=== PATIENT | female | born 1975 ===

== ENCOUNTER 2021-02-23 15:28 | Inpatient (IN) | payer OTHER ==
[~2021-02-23] VITALS: Ht 154.9 cm; Wt 80.3 kg
--- NOTE | 2021-02-23 15:30 | NUR ---
PT BIB CARE FLIGHT FROM [facility] FOR SEPSIS WITH BILATERAL PNEUMONIA WITH R PLEURAL EFFUSION. PT WAS HYPOXIC 85-87% ON RA, PT PLACED ON 2L NC, SPO2 95%. PT HAD COVID 1 MONTH AGO, TESTED NEGATIVE IN [place]. PT HX OF DVT, ON [employer] W[employer] SHE STATES, DENIES ANY OTHER MEDICAL HX. PT RECEIVED 3L NS THIRD COOK, 20G R-AC. PT CHANGED INTO GOWN, ALL MONITORS IN PLACE. BED IN LOWEST POSITION, BED RAILS UP X2, CALL LIGHT WITHIN REACH
--- NOTE | 2021-02-23 15:32 | NUR ---
ERP AT BS FOR EVAL
[2021-02-23] MEDS ORDERED: PLEASE ENTER ALLERGIES MC SCH (16:30)
[2021-02-23] MEDS ORDERED: ALBUMIN HUMAN 25% 100 ML IV ONE ×2 (16:30→17:30)
--- NOTE | 2021-02-23 17:06 | NUR ---
Pt to be admitted to [facility], room 407. Report called to [facility].
[2021-02-23] MEDS ORDERED: POLYETHYLENE GLYCOL 17 GM PACKET PO PRN (18:00)
[2021-02-23] MEDS ORDERED: ACETAMINOPHEN 325 MG TABLET PO PRN (18:00)
[2021-02-23] MEDS ORDERED: VANCOMYCIN PER PHARMACY MC PRN (18:30)
[2021-02-23] MEDS ORDERED: VANCOMYCIN 1,800 MG in SODIUM CHLORIDE 0.9% 250 ML IV ONE (18:30)
[2021-02-23] MEDS ORDERED: PHARMACOKINETIC CONSULTATION MC ONE (18:30)
[2021-02-23] MEDS ORDERED: PHARMACOKINETIC MONITORING MC PRN (18:30)
[2021-02-23 18:35] VITALS: BP 108/69
[2021-02-23 19:20] LABS: INTERNATIONAL NORMALIZED RATIO 4.1 (0.93-1.1)
[2021-02-23 20:40] VITALS: BP 108/69
[2021-02-23] MEDS: SODIUM CHLORIDE 0.9% 1,000 ML IV SCH (20:41)
[2021-02-23] MEDS: OXYcodone/APAP 5/325MG TABLET PO PRN (20:42)
[2021-02-23] MEDS: ALPRazolam 1MG TAB PO PRN (20:42)
[2021-02-23] MEDS: GUAIFENESIN/DM 200-20MG, 10ML UDC PO PRN (20:42)
[2021-02-23] MEDS: PIPERACILLIN/TAZO 3.375 GM in DEXTROSE 5% 50 ML IV SCH (21:00)
[2021-02-23] MEDS: SODIUM CHLORIDE FLUSH 10ML SYR IVF SCH (21:00)
[2021-02-23] MEDS: morphine SULFATE 10 MG/ML, 1ML IVPush PRN (23:03)
[2021-02-23 23:53] VITALS: BP 109/71
[2021-02-24] VITALS (15 sets, daily range): BP systolic 89–117; BP diastolic 48–75
[2021-02-24] MEDS: PIPERACILLIN/TAZO 3.375 GM in DEXTROSE 5% 50 ML IV SCH ×4 (02:34→21:57)
[2021-02-24] MEDS: morphine SULFATE 10 MG/ML, 1ML IVPush PRN ×3 (02:49→22:50)
[2021-02-24 06:24] LABS: MEAN CORPUSCULAR HEMOGLOBIN 26.4 pg (27.0-34.8); MEAN CORPUSCULAR HGB CONC 33.3 g/dL (32.4-35.8); MEAN PLATELET VOLUME 7.5 fL (7.4-10.4); RED BLOOD COUNT 2.87 x10^6/uL (3.82-5.3); RED CELL DISTRIBUTION WIDTH 15.9 % (9.6-15.2)
[2021-02-24 06:30] LABS: ALANINE AMINOTRANSFERASE 14 U/L (12-78); ALBUMIN 2.2 g/dL (3.4-5.0); ANION GAP 7 mmol/L (5-15); CALCIUM 8.5 mg/dL (8.5-10.1); CHLORIDE 108 mmol/L (98-107); CREATININE 0.45 mg/dL (0.55-1.02)
[2021-02-24 06:33] LABS: ALKALINE PHOSPHATASE 105 U/L (45-117); BILIRUBIN,TOTAL 0.6 mg/dL (0.2-1.0)
[2021-02-24 06:46] LABS: INTERNATIONAL NORMALIZED RATIO 2.06 (0.93-1.1); PROTHROMBIN TIME 21.3 Seconds (9.6-11.5)
[2021-02-24 07:37] LABS: PLATELET COUNT 1018 x10^3/uL (130-400)
[2021-02-24 07:41] LABS: LYMPH#(MANUAL) 1.14 x10^3/uL (1-3.4); LYMPHS% (MANUAL) 11 % (22-44); MONOS#(MANUAL) 0.83 x10^3/uL (0.3-2.7); MONOS% (MANUAL) 8 % (2-9); SEG#(MANUAL) 8.42 x10^3/uL (1.8-6.8); SEGS% (MANUAL) 81 % (42-75)
[2021-02-24 07:42] LABS: ANISOCYTOSIS 1+; MICROCYTOSIS 1+
[2021-02-24 07:43] LABS: <PLATELET ESTIMATE> INCREASED; <PLT MORPHOLOGY> NORMAL PLT MORPH
[2021-02-24 07:44] LABS: POLYCHROMASIA 1+
[2021-02-24] MEDS ORDERED: SODIUM CHLORIDE 0.9% 250 ML IV ONE ×2 (08:00→08:30)
[2021-02-24] MEDS: SENNA/DOCUSATE TABLET PO SCH (09:00)
[2021-02-24] MEDS: ESCITALOPRAM 10MG TABLET PO SCH (10:10)
[2021-02-24] MEDS: SODIUM CHLORIDE FLUSH 10ML SYR IVF SCH ×2 (10:11→21:13)
[2021-02-24] MEDS: VANCOMYCIN 1,400 MG in SODIUM CHLORIDE 0.9% 250 ML IV SCH (12:24)
[2021-02-24] MEDS ORDERED: MIDAZOLAM 1 MG/ML, 2ML ONE (14:31)
[2021-02-24] MEDS ORDERED: FENTANYL PF 250 MCG/5ML ONE (14:31)
[2021-02-24] MEDS ORDERED: BUPIVACAINE/PF 0.5% ONE (15:06)
[2021-02-24] MEDS ORDERED: EPINEPHRINE 1 MG/ML, 1ML ONE (15:06)
[2021-02-24] MEDS ORDERED: ONDANSETRON 2MG/ML, 2ML ONE ×2 (15:39)
[2021-02-24] MEDS ORDERED: PROPOFOL 10 MG/ML, 20ML ONE (15:39)
[2021-02-24] MEDS ORDERED: SUCCINYLCHOLINE 20 MG/ML, 10ML ONE (15:39)
[2021-02-24] MEDS ORDERED: ROCURONIUM 10 MG/ML,10ML ONE (15:39)
[2021-02-24] MEDS ORDERED: NEOSTIGMINE 1 MG/ML, 10ML ONE (15:39)
[2021-02-24] MEDS ORDERED: GLYCOPYRROLATE 0.2MG/1ML, 5ML ONE (15:39)
[2021-02-24] MEDS ORDERED: LABETALOL 5MG/ML, 20ML IV PRN (16:30)
[2021-02-24] MEDS ORDERED: DIPHENHYDRAMINE 50 MG/ML, 1ML IVPush PRN (16:30)
[2021-02-24] MEDS ORDERED: MEPERIDINE/PF 25MG/0.5ML IVPush PRN (16:30)
[2021-02-24] MEDS ORDERED: HALOPERIDOL 5 MG/ML IV PRN (16:30)
[2021-02-24] MEDS ORDERED: PROMETHAZINE 25 MG/ML, 1ML IVPush PRN (16:30)
[2021-02-24] MEDS ORDERED: OXYcodone 5 MG/5 ML ORAL.SOL UDC PO PRN (16:30)
[2021-02-24] MEDS ORDERED: hydrALAzine 20 MG/ML, 1ML IV PRN (16:30)
[2021-02-24] MEDS: FENTANYL PF 100 MCG/2ML IV PRN ×3 (17:25→17:35)
[2021-02-24] MEDS ORDERED: OXYcodone 5 MG/5 ML ORAL.SOL UDC ONE (17:26)
[2021-02-24] MEDS ORDERED: FENTANYL PF 100 MCG/2ML ONE (17:26)
[2021-02-24] MEDS ORDERED: ACETAMINOPHEN 650 MG/20.3 ML UDC ONE (17:45)
[2021-02-24] MEDS ORDERED: HYDROmorphone 2 MG/ML, 1ML ONE (17:51)
[2021-02-24] MEDS: HYDROmorphone 1 MG/ML, 1ML INJ IVPush PRN ×3 (17:52→18:15)
[2021-02-24] MEDS ORDERED: SODIUM CHLORIDE 0.9%, 500ML IVBOLUS ONE (21:30)
[2021-02-24] MEDS: OXYcodone/APAP 5/325MG TABLET PO PRN (21:57)
[2021-02-25 00:12] VITALS: BP 105/62
[2021-02-25] MEDS: VANCOMYCIN 1,400 MG in SODIUM CHLORIDE 0.9% 250 ML IV SCH ×2 (00:30→13:55)
[2021-02-25] MEDS: OXYcodone/APAP 5/325MG TABLET PO PRN (02:29)
[2021-02-25] MEDS: PIPERACILLIN/TAZO 3.375 GM in DEXTROSE 5% 50 ML IV SCH ×4 (03:20→23:17)
[2021-02-25 03:30] VITALS: BP 103/66
[2021-02-25] MEDS: SODIUM CHLORIDE 0.9% 1,000 ML IV SCH (05:27)
[2021-02-25] MEDS: morphine SULFATE 10 MG/ML, 1ML IVPush PRN (05:28)
[2021-02-25 06:09] LABS: BASOPHILS % (AUTO) 0 % (0-1); EOSINOPHILS % (AUTO) 0 % (1-7); LYMPHOCYTES % (AUTO) 9 % (22-44); MEAN CORPUSCULAR HEMOGLOBIN 27.1 pg (27.0-34.8); MEAN CORPUSCULAR HGB CONC 32.5 g/dL (32.4-35.8); MEAN PLATELET VOLUME 7.4 fL (7.4-10.4); MONOCYTES % (AUTO) 8 % (2-9); NEUTROPHILS % (AUTO) 83 % (42-75); PLATELET COUNT 911 x10^3/uL (130-400); RED BLOOD COUNT 2.93 x10^6/uL (3.82-5.3); RED CELL DISTRIBUTION WIDTH 17.8 % (9.6-15.2)
[2021-02-25 06:20] LABS: ALBUMIN 1.9 g/dL (3.4-5.0); ANION GAP 5 mmol/L (5-15); CALCIUM 7.8 mg/dL (8.5-10.1); CHLORIDE 105 mmol/L (98-107)
[2021-02-25 06:25] LABS: % IRON SATURATION 9 % (20-55); ALANINE AMINOTRANSFERASE 17 U/L (12-78); ALKALINE PHOSPHATASE 91 U/L (45-117); BILIRUBIN,TOTAL 0.5 mg/dL (0.2-1.0); CREATININE 1.51 mg/dL (0.55-1.02); IRON LEVEL 14 mcg/dL (50-170); TOTAL IRON BINDING CAPACITY 159 mcg/dL (250-450); TOTAL PROTEIN 6.6 g/dL (6.4-8.2)
[2021-02-25] MEDS: ESCITALOPRAM 10MG TABLET PO SCH (08:09)
[2021-02-25] MEDS: SENNA/DOCUSATE TABLET PO SCH (08:09)
[2021-02-25] MEDS: FENTANYL PF 100 MCG/2ML IVPush PRN ×3 (08:10→17:37)
[2021-02-25] MEDS: SODIUM CHLORIDE FLUSH 10ML SYR IVF SCH ×2 (08:53→22:07)
[2021-02-25] MEDS: HYDROcodone/APAP 5/325 TABLET PO PRN ×3 (11:01→22:07)
[2021-02-25] MEDS: HEPARIN 25,000 UNITS/250ML PMX 250 ML IV PRN (13:58)
[2021-02-25 14:13] VITALS: BP 92/59
[2021-02-25 14:18] VITALS: BP 86/58
[2021-02-25] MEDS ORDERED: SODIUM CHLORIDE 0.9% 1,000 ML IV SCH (15:30)
[2021-02-25] MEDS ORDERED: WARFARIN 5 MG TABLET PO-COUM ONE (18:00)
[2021-02-25 19:18] VITALS: BP 95/61
[2021-02-25] MEDS: HEPARIN 5,000 UNITS/ML, 1ML IV PRN (22:08)
[2021-02-26 01:41] VITALS: BP 98/64
[2021-02-26] MEDS: HYDROcodone/APAP 5/325 TABLET PO PRN ×4 (03:39→20:42)
[2021-02-26 04:49] LABS: BASOPHILS % (AUTO) 2 % (0-1); EOSINOPHILS % (AUTO) 0 % (1-7); LYMPHOCYTES % (AUTO) 18 % (22-44); MEAN CORPUSCULAR HEMOGLOBIN 26.9 pg (27.0-34.8); MEAN CORPUSCULAR HGB CONC 32.3 g/dL (32.4-35.8); MEAN PLATELET VOLUME 7.3 fL (7.4-10.4); MONOCYTES % (AUTO) 10 % (2-9); NEUTROPHILS % (AUTO) 70 % (42-75); RED BLOOD COUNT 3.14 x10^6/uL (3.82-5.3); RED CELL DISTRIBUTION WIDTH 17.5 % (9.6-15.2)
[2021-02-26 04:53] LABS: PROTHROMBIN TIME 24.6 Seconds (9.6-11.5)
[2021-02-26 04:54] LABS: PLATELET COUNT 1036 x10^3/uL (130-400)
[2021-02-26 04:55] LABS: ANION GAP 6 mmol/L (5-15); CALCIUM 7.6 mg/dL (8.5-10.1); CHLORIDE 105 mmol/L (98-107); CREATININE 2.93 mg/dL (0.55-1.02)
[2021-02-26 05:15] LABS: VANCOMYCIN,RANDOM 64.4 mcg/mL
[2021-02-26] MEDS: PIPERACILLIN/TAZO 3.375 GM in DEXTROSE 5% 50 ML IV SCH (05:50)
[2021-02-26] MEDS: HEPARIN 5,000 UNITS/ML, 1ML IV PRN ×3 (06:26→20:44)
[2021-02-26 07:51] VITALS: BP 95/63
[2021-02-26] MEDS ORDERED: PHARMACY MAY ADJ FOR RENAL FX MC PRN (08:30)
[2021-02-26] MEDS ORDERED: SODIUM CHLORIDE 0.9% 1,000ML IVBOLUS ONE (08:30)
[2021-02-26 08:32] LABS: D-DIMER 2.39 ug/mlFEU (0.00-0.52)
[2021-02-26] MEDS: morphine SULFATE 10 MG/ML, 1ML IVPush PRN ×2 (09:10→17:22)
[2021-02-26] MEDS: SENNA/DOCUSATE TABLET PO SCH (09:15)
[2021-02-26] MEDS: ESCITALOPRAM 10MG TABLET PO SCH (09:15)
[2021-02-26] MEDS: SODIUM CHLORIDE FLUSH 10ML SYR IVF SCH ×2 (09:22→20:47)
[2021-02-26 11:24] LABS: MICROSCOPIC INDICATED
[2021-02-26] MEDS ORDERED: COVID-19 VACC,MRNA(MODERNA)/PF 100 MCG/0.5ML IM-VACC ONE (11:30)
[2021-02-26] MEDS: MEROPENEM 500 MG in SODIUM CHLORIDE 0.9% 100 ML IV SCH ×2 (13:40→23:44)
[2021-02-26] MEDS: SODIUM CHLORIDE 0.9% 1,000 ML IV SCH ×2 (13:40→20:41)
[2021-02-26 14:28] VITALS: BP 101/65
[2021-02-26] MEDS: HEPARIN 25,000 UNITS/250ML PMX 250 ML IV PRN (17:51)
[2021-02-26] MEDS ORDERED: WARFARIN 1 MG TABLET PO-COUM ONE (18:00)
[2021-02-26 20:30] VITALS: BP 100/61
[2021-02-27 00:20] VITALS: BP 104/70
[2021-02-27] MEDS: morphine SULFATE 10 MG/ML, 1ML IVPush PRN ×3 (01:34→22:51)
[2021-02-27] MEDS: SODIUM CHLORIDE 0.9% 1,000 ML IV SCH ×4 (02:56→22:51)
[2021-02-27] MEDS: HYDROcodone/APAP 5/325 TABLET PO PRN ×3 (02:59→18:48)
[2021-02-27 04:02] LABS: CHLORIDE 109 mmol/L (98-107); INTERNATIONAL NORMALIZED RATIO 3.62 (0.93-1.1); PROTHROMBIN TIME 36.4 Seconds (9.6-11.5)
[2021-02-27 04:04] LABS: BASOPHILS % (AUTO) 1 % (0-1); EOSINOPHILS % (AUTO) 3 % (1-7); LYMPHOCYTES % (AUTO) 20 % (22-44); MEAN CORPUSCULAR HEMOGLOBIN 27.9 pg (27.0-34.8); MEAN CORPUSCULAR HGB CONC 33.3 g/dL (32.4-35.8); MEAN PLATELET VOLUME 7.5 fL (7.4-10.4); MONOCYTES % (AUTO) 12 % (2-9); NEUTROPHILS % (AUTO) 64 % (42-75); PLATELET COUNT 877 x10^3/uL (130-400); RED BLOOD COUNT 3.15 x10^6/uL (3.82-5.3); RED CELL DISTRIBUTION WIDTH 17.7 % (9.6-15.2)
[2021-02-27 04:13] LABS: ANION GAP 8 mmol/L (5-15); CALCIUM 7.4 mg/dL (8.5-10.1); CREATINE KINASE, TOTAL 34 U/L (26-192); CREATININE 3.96 mg/dL (0.55-1.02)
[2021-02-27] MEDS: HEPARIN 5,000 UNITS/ML, 1ML IV PRN ×3 (04:31→19:24)
[2021-02-27] MEDS ORDERED: FERROUS SULFATE 325 MG TABLET PO SCH (08:00)
[2021-02-27] MEDS: ESCITALOPRAM 10MG TABLET PO SCH (08:51)
[2021-02-27] MEDS: SENNA/DOCUSATE TABLET PO SCH (08:52)
[2021-02-27] MEDS: SODIUM CHLORIDE FLUSH 10ML SYR IVF SCH ×2 (08:57→20:09)
[2021-02-27 09:10] VITALS: BP 110/70
[2021-02-27 09:38] LABS: CHLORIDE,URINE RANDOM 28 mmol/L; POTASSIUM,URINE RANDOM 3 mmol/L; SODIUM,URINE RANDOM 35 mmol/L
[2021-02-27] MEDS: CEFTRIAXONE 2 GM in DEXTROSE 5% 50 ML IVPB SCH (10:27)
[2021-02-27] MEDS: metroNIDAZOLE 500 MG TABLET PO SCH ×2 (10:30→17:30)
[2021-02-27 14:22] VITALS: BP 108/70
[2021-02-27] MEDS: IRON SUCROSE COMPLEX 100MG/5ML IV SCH (14:24)
[2021-02-27] MEDS: HEPARIN 25,000 UNITS/250ML PMX 250 ML IV PRN (16:09)
[2021-02-27 20:01] LABS: CHLORIDE,URINE RANDOM 41 mmol/L; POTASSIUM,URINE RANDOM 3 mmol/L; SODIUM,URINE RANDOM 45 mmol/L
[2021-02-27 20:17] VITALS: BP 114/71
[2021-02-27 20:32] LABS: MICROSCOPIC INDICATED
[2021-02-28] MEDS: metroNIDAZOLE 500 MG TABLET PO SCH ×2 (00:39→08:48)
[2021-02-28 00:42] VITALS: BP 107/70
[2021-02-28] MEDS: SODIUM CHLORIDE 0.9% 1,000 ML IV SCH ×2 (05:20→11:45)
[2021-02-28 05:34] LABS: ABSOLUTE RETICS # 0.072 x10^6/uL (0.5-2.5); MEAN CORPUSCULAR HEMOGLOBIN 27.1 pg (27.0-34.8); MEAN CORPUSCULAR HGB CONC 32.3 g/dL (32.4-35.8); MEAN PLATELET VOLUME 7.3 fL (7.4-10.4); PLATELET COUNT 975 x10^3/uL (130-400); RED BLOOD COUNT 3.55 x10^6/uL (3.82-5.3); RED CELL DISTRIBUTION WIDTH 18.1 % (9.6-15.2); RETICULOCYTE COUNT % 2.01 % (0.5-1.5)
[2021-02-28 05:43] LABS: INTERNATIONAL NORMALIZED RATIO 4.3 (0.93-1.1); PROTHROMBIN TIME 42.9 Seconds (9.6-11.5)
[2021-02-28 05:45] LABS: ANION GAP 12 mmol/L (5-15); CALCIUM 7.9 mg/dL (8.5-10.1); CHLORIDE 112 mmol/L (98-107)
[2021-02-28 05:50] LABS: ALANINE AMINOTRANSFERASE 15 U/L (12-78); ALBUMIN 1.4 g/dL (3.4-5.0); ALKALINE PHOSPHATASE 162 U/L (45-117); BILIRUBIN,TOTAL 0.2 mg/dL (0.2-1.0); CREATININE 4.54 mg/dL (0.55-1.02); TOTAL PROTEIN 6.2 g/dL (6.4-8.2)
[2021-02-28] MEDS: HYDROcodone/APAP 5/325 TABLET PO PRN ×3 (06:25→19:21)
[2021-02-28 07:42] LABS: BAND#(MANUAL) 0.26 x10^3/uL; BANDS%(MANUAL) 2 % (0-7); BASOS#(MANUAL) 0.13 x10^3/uL (0-0.1); BASOS% (MANUAL) 1 % (0-1); EOS#(MANUAL) 0.13 x10^3/uL (0.0-0.4); EOS% (MANUAL) 1 % (1-7); LYMPH#(MANUAL) 0.52 x10^3/uL (1-3.4); LYMPHS% (MANUAL) 4 % (22-44); METAMYELOCYTES# (MANUAL) 0.39 x10^3/uL (0-0); METAMYELOCYTES% (MANUAL) 3 % (0-1); MONOS#(MANUAL) 0.92 x10^3/uL (0.3-2.7); MONOS% (MANUAL) 7 % (2-9); MYELOCYTES# (MANUAL) 0.13 x10^3/uL (0-0); MYELOCYTES% (MANUAL) 1 % (0-0); SEG#(MANUAL) 10.61 x10^3/uL (1.8-6.8); SEGS% (MANUAL) 81 % (42-75)
[2021-02-28 07:44] LABS: <PLATELET ESTIMATE> INCREASED; <PLT MORPHOLOGY> NORMAL PLT MORPH; ANISOCYTOSIS 1+; HYPOCHROMIA 1+; MICROCYTOSIS 1+
[2021-02-28 08:20] VITALS: BP 119/76
[2021-02-28] MEDS: SODIUM CHLORIDE FLUSH 10ML SYR IVF SCH ×2 (08:48→22:19)
[2021-02-28] MEDS: SENNA/DOCUSATE TABLET PO SCH (08:49)
[2021-02-28] MEDS: CEFTRIAXONE 2 GM in DEXTROSE 5% 50 ML IVPB SCH (10:14)
[2021-02-28] MEDS: HEPARIN 5,000 UNITS/ML, 1ML IV PRN (10:15)
[2021-02-28] MEDS: HEPARIN 25,000 UNITS/250ML PMX 250 ML IV PRN (10:18)
[2021-02-28] MEDS: IRON SUCROSE COMPLEX 100MG/5ML IV SCH (11:45)
[2021-02-28 12:47] VITALS: BP 126/76
[2021-02-28] MEDS: ERGOCALCIFEROL 50,000 UNIT CAPSULE PO SCH (13:06)
[2021-02-28] MEDS ORDERED: PIPERACILLIN/TAZO 2.25 GM in SODIUM CHLORIDE 0.9% 50 ML IV SCH ×2 (15:00→21:30)
[2021-02-28 20:21] VITALS: BP 120/63
[2021-02-28] MEDS: ESCITALOPRAM 10MG TABLET PO SCH (22:19)
[2021-02-28] MEDS: PIPERACILLIN/TAZO 2.25 GM in SODIUM CHLORIDE 0.9% 50 ML IV SCH (22:57)
[2021-03-01 00:34] VITALS: BP 116/74
[2021-03-01] MEDS: ONDANSETRON 2MG/ML, 2ML IVPush PRN ×2 (02:38→13:21)
[2021-03-01] MEDS: GUAIFENESIN/DM 200-20MG, 10ML UDC PO PRN ×4 (02:38→23:13)
[2021-03-01] MEDS: HEPARIN 25,000 UNITS/250ML PMX 250 ML IV PRN (03:01)
[2021-03-01] MEDS: ALPRazolam 1MG TAB PO PRN ×2 (03:08→23:13)
[2021-03-01 04:15] VITALS: BP 102/66
[2021-03-01 06:15] LABS: CHLORIDE 114 mmol/L (98-107)
[2021-03-01 06:29] LABS: INTERNATIONAL NORMALIZED RATIO 5.58 (0.93-1.1)
[2021-03-01 06:32] LABS: ALANINE AMINOTRANSFERASE 14 U/L (12-78); ALBUMIN 1.4 g/dL (3.4-5.0); ALKALINE PHOSPHATASE 146 U/L (45-117); ANION GAP 11 mmol/L (5-15); BASOPHILS % (AUTO) 1 % (0-1); BILIRUBIN,TOTAL 0.3 mg/dL (0.2-1.0); CALCIUM 7.8 mg/dL (8.5-10.1); CREATININE 4.73 mg/dL (0.55-1.02); EOSINOPHILS % (AUTO) 3 % (1-7); LYMPHOCYTES % (AUTO) 12 % (22-44); MEAN CORPUSCULAR HEMOGLOBIN 27.6 pg (27.0-34.8); MEAN CORPUSCULAR HGB CONC 33.1 g/dL (32.4-35.8); MEAN PLATELET VOLUME 7.4 fL (7.4-10.4); MONOCYTES % (AUTO) 7 % (2-9); NEUTROPHILS % (AUTO) 77 % (42-75); PLATELET COUNT 810 x10^3/uL (130-400); RED BLOOD COUNT 3.12 x10^6/uL (3.82-5.3); RED CELL DISTRIBUTION WIDTH 18.9 % (9.6-15.2); TOTAL PROTEIN 5.9 g/dL (6.4-8.2)
[2021-03-01] MEDS: PIPERACILLIN/TAZO 2.25 GM in SODIUM CHLORIDE 0.9% 50 ML IV SCH (07:49)
[2021-03-01 07:50] VITALS: BP 129/72
[2021-03-01] MEDS ORDERED: POTASSIUM ACETATE IV SCH (08:30)
[2021-03-01] MEDS ORDERED: [UNRECOGNIZED DRUG - OTHER] IV SCH (08:30)
[2021-03-01] MEDS ORDERED: SODIUM BICARB IV SCH (08:30)
[2021-03-01] MEDS: SODIUM CHLORIDE FLUSH 10ML SYR IVF SCH ×2 (10:17→23:14)
[2021-03-01] MEDS: SENNA/DOCUSATE TABLET PO SCH (10:18)
[2021-03-01] MEDS: IRON SUCROSE COMPLEX 100MG/5ML IV SCH (13:09)
[2021-03-01] MEDS: PIPERACILLIN/TAZO 2.25 GM in DEXTROSE 5% 50 ML IVPB SCH ×2 (15:07→23:13)
[2021-03-01 15:55] VITALS: BP 124/75
[2021-03-01] MEDS: POTASSIUM CHLORIDE 20 MEQ PACKET PO SCH (16:37)
[2021-03-01 19:53] VITALS: BP 126/81
[2021-03-01] MEDS: SODIUM BICARBONATE 650 MG TABLET PO SCH (23:13)
[2021-03-01] MEDS: ESCITALOPRAM 10MG TABLET PO SCH (23:13)
[2021-03-02 01:36] VITALS: BP 104/69
[2021-03-02] MEDS: GUAIFENESIN/DM 200-20MG, 10ML UDC PO PRN ×4 (05:46→23:00)
[2021-03-02 06:12] LABS: BASOPHILS % (AUTO) 1 % (0-1); EOSINOPHILS % (AUTO) 6 % (1-7); LYMPHOCYTES % (AUTO) 14 % (22-44); MEAN CORPUSCULAR HEMOGLOBIN 28.1 pg (27.0-34.8); MEAN CORPUSCULAR HGB CONC 33.9 g/dL (32.4-35.8); MEAN PLATELET VOLUME 7.3 fL (7.4-10.4); MONOCYTES % (AUTO) 11 % (2-9); NEUTROPHILS % (AUTO) 69 % (42-75); PLATELET COUNT 716 x10^3/uL (130-400); RED BLOOD COUNT 3.15 x10^6/uL (3.82-5.3)
[2021-03-02 06:14] LABS: ANION GAP 8 mmol/L (5-15); CALCIUM 7.7 mg/dL (8.5-10.1); CHLORIDE 117 mmol/L (98-107); CREATININE 5.21 mg/dL (0.55-1.02)
[2021-03-02 06:24] LABS: INTERNATIONAL NORMALIZED RATIO 6.04 (0.93-1.1); PROTHROMBIN TIME 59.3 Seconds (9.6-11.5)
[2021-03-02] MEDS: PIPERACILLIN/TAZO 2.25 GM in DEXTROSE 5% 50 ML IVPB SCH ×3 (07:10→23:00)
[2021-03-02 07:54] VITALS: BP 125/79
[2021-03-02] MEDS: SENNA/DOCUSATE TABLET PO SCH (09:12)
[2021-03-02] MEDS: POTASSIUM CHLORIDE 20 MEQ PACKET PO SCH ×3 (10:37→22:07)
[2021-03-02] MEDS: SODIUM BICARBONATE 650 MG TABLET PO SCH ×2 (10:39→22:06)
[2021-03-02] MEDS: SODIUM CHLORIDE FLUSH 10ML SYR IVF SCH ×2 (10:40→22:07)
[2021-03-02] MEDS: IRON SUCROSE COMPLEX 100MG/5ML IV SCH (12:49)
[2021-03-02] MEDS: ONDANSETRON 2MG/ML, 2ML IVPush PRN (12:55)
[2021-03-02 12:58] VITALS: BP 130/79
[2021-03-02] MEDS: ALPRazolam 1MG TAB PO PRN (18:49)
[2021-03-02 19:32] VITALS: BP 119/75
[2021-03-02] MEDS: ESCITALOPRAM 10MG TABLET PO SCH (22:06)
[2021-03-03 02:00] VITALS: BP 127/61
[2021-03-03] MEDS: ALPRazolam 1MG TAB PO PRN ×2 (05:47→13:07)
[2021-03-03] MEDS: GUAIFENESIN/DM 200-20MG, 10ML UDC PO PRN ×3 (05:47→18:58)
[2021-03-03 06:29] LABS: INTERNATIONAL NORMALIZED RATIO 4.87 (0.93-1.1); PROTHROMBIN TIME 48.3 Seconds (9.6-11.5)
[2021-03-03 06:34] LABS: BASOPHILS % (AUTO) 1 % (0-1); EOSINOPHILS % (AUTO) 7 % (1-7); LYMPHOCYTES % (AUTO) 14 % (22-44); MEAN CORPUSCULAR HEMOGLOBIN 27.1 pg (27.0-34.8); MEAN CORPUSCULAR HGB CONC 32.7 g/dL (32.4-35.8); MEAN PLATELET VOLUME 7.4 fL (7.4-10.4); MONOCYTES % (AUTO) 10 % (2-9); NEUTROPHILS % (AUTO) 68 % (42-75); PLATELET COUNT 730 x10^3/uL (130-400); RED BLOOD COUNT 3.55 x10^6/uL (3.82-5.3)
[2021-03-03 06:38] LABS: ALANINE AMINOTRANSFERASE 10 U/L (12-78); ALBUMIN 1.4 g/dL (3.4-5.0); ANION GAP 9 mmol/L (5-15); CALCIUM 7.7 mg/dL (8.5-10.1); CHLORIDE 115 mmol/L (98-107); CREATININE 5.39 mg/dL (0.55-1.02)
[2021-03-03 06:47] LABS: ALKALINE PHOSPHATASE 147 U/L (45-117); BILIRUBIN,TOTAL 0.3 mg/dL (0.2-1.0); TOTAL PROTEIN 6.4 g/dL (6.4-8.2)
[2021-03-03] MEDS: PIPERACILLIN/TAZO 2.25 GM in DEXTROSE 5% 50 ML IVPB SCH (07:43)
[2021-03-03 07:44] VITALS: BP 114/76
[2021-03-03 08:45] LABS: HCT (SEDRATE) 29.4 % (34.6-47.8)
[2021-03-03] MEDS: SENNA/DOCUSATE TABLET PO SCH (09:07)
[2021-03-03] MEDS: POTASSIUM CHLORIDE 20 MEQ PACKET PO SCH ×3 (09:13→20:23)
[2021-03-03] MEDS: SODIUM CHLORIDE FLUSH 10ML SYR IVF SCH ×2 (09:14→20:24)
[2021-03-03] MEDS: SODIUM BICARBONATE 650 MG TABLET PO SCH ×2 (09:15→20:24)
[2021-03-03] MEDS: ONDANSETRON 2MG/ML, 2ML IVPush PRN (12:33)
[2021-03-03] MEDS: IRON SUCROSE COMPLEX 100MG/5ML IV SCH (13:07)
[2021-03-03 14:00] VITALS: BP 124/81
[2021-03-03] MEDS ORDERED: ERTAPENEM 1 GM in SODIUM CHLORIDE 0.9% 50 ML IV SCH (16:00)
[2021-03-03 19:12] VITALS: BP 123/67
[2021-03-03] MEDS: ESCITALOPRAM 10MG TABLET PO SCH (20:23)
[2021-03-04] MEDS: GUAIFENESIN/DM 200-20MG, 10ML UDC PO PRN ×4 (01:15→21:01)
[2021-03-04] MEDS: ALPRazolam 1MG TAB PO PRN ×3 (01:15→18:15)
[2021-03-04 02:16] VITALS: BP 115/73
[2021-03-04 05:42] LABS: INTERNATIONAL NORMALIZED RATIO 3.85 (0.93-1.1); PROTHROMBIN TIME 38.6 Seconds (9.6-11.5)
[2021-03-04 07:41] VITALS: BP 113/70
[2021-03-04] MEDS: SODIUM CHLORIDE FLUSH 10ML SYR IVF SCH ×2 (08:34→20:52)
[2021-03-04] MEDS: SENNA/DOCUSATE TABLET PO SCH (08:34)
[2021-03-04] MEDS: SODIUM BICARBONATE 650 MG TABLET PO SCH ×2 (08:34→20:52)
[2021-03-04] MEDS: POTASSIUM CHLORIDE 20 MEQ PACKET PO SCH ×3 (08:34→20:52)
[2021-03-04 09:33] LABS: ANION GAP 9 mmol/L (5-15); CALCIUM 7.7 mg/dL (8.5-10.1); CHLORIDE 117 mmol/L (98-107); CREATININE 5.38 mg/dL (0.55-1.02)
[2021-03-04 13:16] VITALS: BP 118/66
[2021-03-04] MEDS: ERTAPENEM 0.5 GM in SODIUM CHLORIDE 0.9% 50 ML IV SCH (16:55)
[2021-03-04] MEDS: ONDANSETRON 2MG/ML, 2ML IVPush PRN (17:31)
[2021-03-04] MEDS ORDERED: WARFARIN 1 MG TABLET PO-COUM ONE (18:00)
[2021-03-04 18:48] VITALS: BP 108/60
[2021-03-04] MEDS: ESCITALOPRAM 10MG TABLET PO SCH (20:52)
[2021-03-05 02:10] VITALS: BP 125/61
[2021-03-05] MEDS: GUAIFENESIN/DM 200-20MG, 10ML UDC PO PRN ×4 (02:52→23:47)
[2021-03-05] MEDS: ALPRazolam 1MG TAB PO PRN ×3 (02:53→20:51)
[2021-03-05 06:02] LABS: INTERNATIONAL NORMALIZED RATIO 2.61 (0.93-1.1); PROTHROMBIN TIME 26.7 Seconds (9.6-11.5)
[2021-03-05 06:06] LABS: CHLORIDE 114 mmol/L (98-107)
[2021-03-05 06:09] LABS: ALANINE AMINOTRANSFERASE 8 U/L (12-78); ALBUMIN 1.4 g/dL (3.4-5.0); ALKALINE PHOSPHATASE 131 U/L (45-117); ANION GAP 9 mmol/L (5-15); BILIRUBIN,TOTAL 0.4 mg/dL (0.2-1.0); CALCIUM 7.8 mg/dL (8.5-10.1); CREATININE 5.18 mg/dL (0.55-1.02); TOTAL PROTEIN 5.9 g/dL (6.4-8.2)
[2021-03-05 06:18] LABS: BASOPHILS % (AUTO) 1 % (0-1); EOSINOPHILS % (AUTO) 8 % (1-7); LYMPHOCYTES % (AUTO) 13 % (22-44); MEAN CORPUSCULAR HEMOGLOBIN 27.8 pg (27.0-34.8); MEAN PLATELET VOLUME 7.6 fL (7.4-10.4); MONOCYTES % (AUTO) 11 % (2-9); NEUTROPHILS % (AUTO) 68 % (42-75); PLATELET COUNT 422 x10^3/uL (130-400); RED BLOOD COUNT 3.05 x10^6/uL (3.82-5.3); RED CELL DISTRIBUTION WIDTH 21.2 % (9.6-15.2)
[2021-03-05] MEDS: ONDANSETRON 2MG/ML, 2ML IVPush PRN (06:37)
[2021-03-05] MEDS: HYDROcodone/APAP 5/325 TABLET PO PRN ×3 (07:43→23:47)
[2021-03-05] MEDS: POTASSIUM CHLORIDE 20 MEQ PACKET PO SCH ×3 (07:45→20:52)
[2021-03-05] MEDS: SODIUM BICARBONATE 650 MG TABLET PO SCH ×2 (07:45→20:53)
[2021-03-05] MEDS: SENNA/DOCUSATE TABLET PO SCH (07:46)
[2021-03-05] MEDS: SODIUM CHLORIDE FLUSH 10ML SYR IVF SCH ×2 (07:46→20:59)
[2021-03-05 07:51] VITALS: BP 95/67
[2021-03-05 14:16] VITALS: BP 109/70
[2021-03-05] MEDS: ERTAPENEM 0.5 GM in SODIUM CHLORIDE 0.9% 50 ML IV SCH (17:26)
[2021-03-05] MEDS ORDERED: WARFARIN 7.5 MG TABLET PO-COUM ONE (18:00)
[2021-03-05] MEDS ORDERED: ESCI20TA10 PO (18:11)
[2021-03-05] MEDS ORDERED: WARF-36 PO (18:11)
[2021-03-05] MEDS ORDERED: WARF7.5T46 PO (18:11)
[2021-03-05] MEDS ORDERED: ALPR1TAB2 PO (18:11)
[2021-03-05 20:05] VITALS: BP 123/79
[2021-03-05] MEDS: ESCITALOPRAM 10MG TABLET PO SCH (20:52)
[2021-03-06 02:03] VITALS: BP 122/94
[2021-03-06 05:16] LABS: BASOPHILS % (AUTO) 0 % (0-1); EOSINOPHILS % (AUTO) 8 % (1-7); LYMPHOCYTES % (AUTO) 15 % (22-44); MEAN PLATELET VOLUME 7.5 fL (7.4-10.4); MONOCYTES % (AUTO) 11 % (2-9); NEUTROPHILS % (AUTO) 66 % (42-75); PLATELET COUNT 378 x10^3/uL (130-400); RED BLOOD COUNT 2.98 x10^6/uL (3.82-5.3)
[2021-03-06 05:27] LABS: INTERNATIONAL NORMALIZED RATIO 2.67 (0.93-1.1); PROTHROMBIN TIME 27.3 Seconds (9.6-11.5)
[2021-03-06 05:29] LABS: ANION GAP 8 mmol/L (5-15); CALCIUM 7.5 mg/dL (8.5-10.1); CHLORIDE 114 mmol/L (98-107); CREATININE 4.96 mg/dL (0.55-1.02)
[2021-03-06] MEDS: GUAIFENESIN/DM 200-20MG, 10ML UDC PO PRN ×3 (05:53→21:52)
[2021-03-06] MEDS: HYDROcodone/APAP 5/325 TABLET PO PRN ×3 (05:55→21:52)
[2021-03-06] MEDS: SENNA/DOCUSATE TABLET PO SCH (08:13)
[2021-03-06] MEDS: POTASSIUM CHLORIDE 20 MEQ PACKET PO SCH (08:53)
[2021-03-06] MEDS: SODIUM CHLORIDE FLUSH 10ML SYR IVF SCH ×2 (08:53→21:54)
[2021-03-06] MEDS: SODIUM BICARBONATE 650 MG TABLET PO SCH ×2 (08:54→21:50)
[2021-03-06] MEDS: ALPRazolam 1MG TAB PO PRN ×2 (08:55→17:08)
[2021-03-06 10:21] VITALS: BP 124/80
[2021-03-06 13:56] VITALS: BP 124/78
[2021-03-06] MEDS: ERTAPENEM 0.5 GM in SODIUM CHLORIDE 0.9% 50 ML IV SCH (17:09)
[2021-03-06] MEDS ORDERED: WARFARIN 2.5 MG TABLET PO-COUM ONE (18:00)
[2021-03-06 20:41] VITALS: BP 117/78
[2021-03-06] MEDS: ESCITALOPRAM 10MG TABLET PO SCH (21:50)
[2021-03-07 00:35] VITALS: BP 108/72
[2021-03-07] MEDS: ALPRazolam 1MG TAB PO PRN ×3 (02:12→18:17)
[2021-03-07] MEDS: GUAIFENESIN/DM 200-20MG, 10ML UDC PO PRN ×3 (04:46→18:17)
[2021-03-07] MEDS: HYDROcodone/APAP 5/325 TABLET PO PRN ×3 (04:47→18:17)
[2021-03-07 05:29] LABS: BASOPHILS % (AUTO) 1 % (0-1); EOSINOPHILS % (AUTO) 8 % (1-7); LYMPHOCYTES % (AUTO) 22 % (22-44); MEAN CORPUSCULAR HEMOGLOBIN 28.1 pg (27.0-34.8); MEAN PLATELET VOLUME 7.8 fL (7.4-10.4); MONOCYTES % (AUTO) 10 % (2-9); NEUTROPHILS % (AUTO) 59 % (42-75); PLATELET COUNT 331 x10^3/uL (130-400); RED BLOOD COUNT 2.86 x10^6/uL (3.82-5.3); RED CELL DISTRIBUTION WIDTH 21.7 % (9.6-15.2)
[2021-03-07 05:36] LABS: ANION GAP 4 mmol/L (5-15); CALCIUM 7.5 mg/dL (8.5-10.1); CHLORIDE 112 mmol/L (98-107)
[2021-03-07 05:37] LABS: CREATININE 4.75 mg/dL (0.55-1.02)
[2021-03-07 05:43] LABS: INTERNATIONAL NORMALIZED RATIO 3.75 (0.93-1.1); PROTHROMBIN TIME 37.7 Seconds (9.6-11.5)
[2021-03-07 07:04] VITALS: BP 147/86
[2021-03-07] MEDS: SENNA/DOCUSATE TABLET PO SCH (09:00)
[2021-03-07] MEDS: SODIUM CHLORIDE FLUSH 10ML SYR IVF SCH ×2 (09:00→21:11)
[2021-03-07] MEDS: SODIUM BICARBONATE 650 MG TABLET PO SCH ×2 (11:42→21:11)
[2021-03-07 12:28] VITALS: BP 138/85
[2021-03-07] MEDS ORDERED: HOLD WARFARIN MC ONE (18:00)
[2021-03-07] MEDS: ERTAPENEM 0.5 GM in SODIUM CHLORIDE 0.9% 50 ML IV SCH (18:17)
[2021-03-07] MEDS: ERGOCALCIFEROL 50,000 UNIT CAPSULE PO SCH (18:17)
[2021-03-07 21:01] VITALS: BP 126/79
[2021-03-07] MEDS: ESCITALOPRAM 10MG TABLET PO SCH (21:11)
[2021-03-08] MEDS: ALPRazolam 1MG TAB PO PRN ×4 (00:21→18:45)
[2021-03-08] MEDS: GUAIFENESIN/DM 200-20MG, 10ML UDC PO PRN ×4 (00:21→21:27)
[2021-03-08] MEDS: HYDROcodone/APAP 5/325 TABLET PO PRN ×4 (00:22→18:45)
[2021-03-08 03:04] VITALS: BP 146/83
[2021-03-08 05:25] LABS: BASOPHILS % (AUTO) 0 % (0-1); EOSINOPHILS % (AUTO) 5 % (1-7); LYMPHOCYTES % (AUTO) 22 % (22-44); MEAN CORPUSCULAR HEMOGLOBIN 27.8 pg (27.0-34.8); MEAN CORPUSCULAR HGB CONC 32.8 g/dL (32.4-35.8); MEAN PLATELET VOLUME 7.8 fL (7.4-10.4); MONOCYTES % (AUTO) 10 % (2-9); NEUTROPHILS % (AUTO) 63 % (42-75); PLATELET COUNT 350 x10^3/uL (130-400); RED CELL DISTRIBUTION WIDTH 21.5 % (9.6-15.2)
[2021-03-08 05:26] LABS: INTERNATIONAL NORMALIZED RATIO 3.88 (0.93-1.1); PROTHROMBIN TIME 38.9 Seconds (9.6-11.5)
[2021-03-08 05:28] LABS: ALANINE AMINOTRANSFERASE 7 U/L (12-78); ALBUMIN 1.5 g/dL (3.4-5.0); ANION GAP 3 mmol/L (5-15); CALCIUM 7.4 mg/dL (8.5-10.1); CHLORIDE 111 mmol/L (98-107); CREATININE 4.24 mg/dL (0.55-1.02)
[2021-03-08 05:31] LABS: ALKALINE PHOSPHATASE 144 U/L (45-117); BILIRUBIN,TOTAL 0.3 mg/dL (0.2-1.0); TOTAL PROTEIN 6.4 g/dL (6.4-8.2)
[2021-03-08 06:22] VITALS: BP 143/78
[2021-03-08 08:37] VITALS: BP 118/75
[2021-03-08] MEDS: SENNA/DOCUSATE TABLET PO SCH (08:43)
[2021-03-08] MEDS: SODIUM CHLORIDE FLUSH 10ML SYR IVF SCH ×2 (08:43→21:12)
[2021-03-08] MEDS: SODIUM BICARBONATE 650 MG TABLET PO SCH (08:43)
[2021-03-08] MEDS ORDERED: HOLD WARFARIN MC ONE (14:30)
[2021-03-08 14:51] VITALS: BP 137/81
[2021-03-08] MEDS: ERTAPENEM 0.5 GM in SODIUM CHLORIDE 0.9% 50 ML IV SCH (16:40)
[2021-03-08] MEDS: ESCITALOPRAM 10MG TABLET PO SCH (21:12)
[2021-03-08 21:34] VITALS: BP 136/68
[2021-03-09] MEDS: ALPRazolam 1MG TAB PO PRN ×4 (01:01→21:38)
[2021-03-09] MEDS: HYDROcodone/APAP 5/325 TABLET PO PRN ×4 (01:02→21:38)
[2021-03-09 01:05] VITALS: BP 140/72
[2021-03-09] MEDS: GUAIFENESIN/DM 200-20MG, 10ML UDC PO PRN (05:35)
[2021-03-09 05:38] LABS: HCT (SEDRATE) 25.3 % (34.6-47.8)
[2021-03-09 06:25] LABS: INTERNATIONAL NORMALIZED RATIO 3.73 (0.93-1.1); PROTHROMBIN TIME 37.5 Seconds (9.6-11.5)
[2021-03-09 08:05] VITALS: BP 137/83
[2021-03-09 08:50] VITALS: BP 111/54
[2021-03-09] MEDS: SENNA/DOCUSATE TABLET PO SCH (09:00)
[2021-03-09] MEDS: SODIUM CHLORIDE FLUSH 10ML SYR IVF SCH ×2 (09:54→21:00)
[2021-03-09] MEDS ORDERED: GUAIFENESIN 100 MG/5 ML, 5ML UDC PO PRN (13:30)
[2021-03-09] MEDS: GUAIFENESIN/DM 100-10MG, 5ML UDC PO PRN ×2 (14:49→21:37)
[2021-03-09 14:53] VITALS: BP 134/78
[2021-03-09] MEDS: ERTAPENEM 0.5 GM in SODIUM CHLORIDE 0.9% 50 ML IV SCH (16:30)
[2021-03-09] MEDS: WARFARIN 1 MG TABLET PO-COUM ONE (18:00)
[2021-03-09 19:37] VITALS: BP 120/75
[2021-03-09] MEDS: ESCITALOPRAM 10MG TABLET PO SCH (21:38)
[2021-03-10 01:42] VITALS: BP 145/85
[2021-03-10 05:13] LABS: BASOPHILS % (AUTO) 0 % (0-1); EOSINOPHILS % (AUTO) 3 % (1-7); LYMPHOCYTES % (AUTO) 24 % (22-44); MEAN CORPUSCULAR HGB CONC 33.2 g/dL (32.4-35.8); MONOCYTES % (AUTO) 8 % (2-9); NEUTROPHILS % (AUTO) 64 % (42-75); PLATELET COUNT 334 x10^3/uL (130-400); RED BLOOD COUNT 3.05 x10^6/uL (3.82-5.3); RED CELL DISTRIBUTION WIDTH 21.2 % (9.6-15.2)
[2021-03-10 05:23] LABS: INTERNATIONAL NORMALIZED RATIO 3.35 (0.93-1.1); PROTHROMBIN TIME 33.8 Seconds (9.6-11.5)
[2021-03-10 05:29] LABS: ALBUMIN 1.6 g/dL (3.4-5.0); ANION GAP 3 mmol/L (5-15); CALCIUM 7.7 mg/dL (8.5-10.1); CHLORIDE 109 mmol/L (98-107); CREATININE 3.28 mg/dL (0.55-1.02)
[2021-03-10 05:31] LABS: ALKALINE PHOSPHATASE 161 U/L (45-117); BILIRUBIN,TOTAL 0.3 mg/dL (0.2-1.0); TOTAL PROTEIN 6.6 g/dL (6.4-8.2)
[2021-03-10] MEDS: ALPRazolam 1MG TAB PO PRN ×3 (05:31→21:05)
[2021-03-10] MEDS: HYDROcodone/APAP 5/325 TABLET PO PRN ×3 (05:31→21:05)
[2021-03-10] MEDS: GUAIFENESIN/DM 100-10MG, 5ML UDC PO PRN ×3 (05:31→21:05)
[2021-03-10 05:36] LABS: ALANINE AMINOTRANSFERASE < 6 U/L (12-78)
[2021-03-10] MEDS: SODIUM CHLORIDE FLUSH 10ML SYR IVF SCH ×2 (08:21→21:06)
[2021-03-10] MEDS: SENNA/DOCUSATE TABLET PO SCH (08:21)
[2021-03-10 08:23] VITALS: BP 139/82
[2021-03-10 13:54] VITALS: BP 121/79
[2021-03-10] MEDS: ERTAPENEM 0.5 GM in SODIUM CHLORIDE 0.9% 50 ML IV SCH (17:11)
[2021-03-10] MEDS ORDERED: WARFARIN 1 MG TABLET PO-COUM ONE (18:00)
[2021-03-10] MEDS: ESCITALOPRAM 10MG TABLET PO SCH (21:06)
[2021-03-10 21:10] VITALS: BP 140/84
[2021-03-11 02:40] VITALS: BP 134/77
[2021-03-11] MEDS: HYDROcodone/APAP 5/325 TABLET PO PRN ×4 (03:38→22:40)
[2021-03-11] MEDS: ALPRazolam 1MG TAB PO PRN ×3 (03:41→16:20)
[2021-03-11 06:48] LABS: ALBUMIN 1.6 g/dL (3.4-5.0); CALCIUM 6.9 mg/dL (8.5-10.1); CHLORIDE 104 mmol/L (98-107)
[2021-03-11 06:51] LABS: ANION GAP 11 mmol/L (5-15); CREATININE 2.67 mg/dL (0.55-1.02)
[2021-03-11 07:08] LABS: INTERNATIONAL NORMALIZED RATIO 2.65 (0.93-1.1); PROTHROMBIN TIME 27.1 Seconds (9.6-11.5)
[2021-03-11 07:54] VITALS: BP 135/80
[2021-03-11] MEDS: SENNA/DOCUSATE TABLET PO SCH (09:00)
[2021-03-11] MEDS: SODIUM CHLORIDE FLUSH 10ML SYR IVF SCH ×2 (09:30→21:26)
[2021-03-11] MEDS: GUAIFENESIN/DM 100-10MG, 5ML UDC PO PRN (10:06)
[2021-03-11] MEDS: AMOXICILLIN/CLAV 875-125MG TABLET PO SCH ×2 (10:07→21:25)
[2021-03-11] MEDS: ONDANSETRON 2MG/ML, 2ML IVPush PRN (11:36)
[2021-03-11 13:19] VITALS: BP 115/75
[2021-03-11] MEDS: ERTAPENEM 0.5 GM in SODIUM CHLORIDE 0.9% 50 ML IV SCH (17:30)
[2021-03-11] MEDS ORDERED: WARFARIN 1 MG TABLET PO-COUM ONE (18:00)
[2021-03-11 19:20] VITALS: BP 103/67
[2021-03-11] MEDS: ESCITALOPRAM 10MG TABLET PO SCH (21:25)
[2021-03-12 02:12] VITALS: BP 108/70
[2021-03-12] MEDS: ALPRazolam 1MG TAB PO PRN ×2 (02:44→11:40)
[2021-03-12] MEDS: HYDROcodone/APAP 5/325 TABLET PO PRN ×2 (05:02→11:40)
[2021-03-12 05:43] LABS: BASOPHILS % (AUTO) 1 % (0-1); EOSINOPHILS % (AUTO) 3 % (1-7); LYMPHOCYTES % (AUTO) 27 % (22-44); MEAN CORPUSCULAR HEMOGLOBIN 27.8 pg (27.0-34.8); MEAN CORPUSCULAR HGB CONC 32.6 g/dL (32.4-35.8); MEAN PLATELET VOLUME 8.3 fL (7.4-10.4); MONOCYTES % (AUTO) 9 % (2-9); NEUTROPHILS % (AUTO) 60 % (42-75); PLATELET COUNT 331 x10^3/uL (130-400); RED BLOOD COUNT 3.17 x10^6/uL (3.82-5.3); RED CELL DISTRIBUTION WIDTH 21.1 % (9.6-15.2)
[2021-03-12 05:51] LABS: INTERNATIONAL NORMALIZED RATIO 2.53 (0.93-1.1); PROTHROMBIN TIME 25.9 Seconds (9.6-11.5)
[2021-03-12 05:53] LABS: ANION GAP 6 mmol/L (5-15); CALCIUM 7.3 mg/dL (8.5-10.1); CHLORIDE 107 mmol/L (98-107); CREATININE 2.21 mg/dL (0.55-1.02)
[2021-03-12 08:42] VITALS: BP 113/74
[2021-03-12] MEDS ORDERED: ERTAPENEM 0.5 GM in SODIUM CHLORIDE 0.9% 50 ML IV SCH (09:00)
[2021-03-12] MEDS: SENNA/DOCUSATE TABLET PO SCH (09:00)
[2021-03-12] MEDS: SODIUM CHLORIDE FLUSH 10ML SYR IVF SCH (09:04)
[2021-03-12] MEDS: AMOXICILLIN/CLAV 875-125MG TABLET PO SCH (10:09)
[2021-03-12 14:32] VITALS: BP 110/74
[2021-03-12] MEDS ORDERED: ERGO500017 PO (14:58)
[2021-03-12] MEDS ORDERED: AMOX1TAB12 PO (14:58)
[2021-03-12] MEDS ORDERED: WARFARIN 1 MG TABLET PO-COUM ONE (18:00)
== END 2021-03-12 16:30 | disposition home or self-care (01) | DRG 853 ==
LOC: EDBD 15:28 → SUATTDRO 16:43 → ED 17:09 → EDIP 17:49 → 4WST 17:57 → 4NE 02-24 19:01
PROVIDERS: ADMIT Internal Medicine; ATTEND Internal Medicine
PROC: 0BNK4ZZ Release Right Lung, Percutaneous Endoscopic Approach (ICD-10-PCS; 2021-02-24)
PROC: 30233K1 Transfusion of Nonautologous Frozen Plasma into Peripheral Vein, Percutaneous Approach (ICD-10-PCS; 2021-02-24)
PROC: 30233N1 Transfusion of Nonautologous Red Blood Cells into Peripheral Vein, Percutaneous Approach (ICD-10-PCS; 2021-02-24)
PROC: 02HV33Z Insertion of Infusion Device into Superior Vena Cava, Percutaneous Approach (ICD-10-PCS; principal; 2021-03-05)
PROC: B5181ZA Fluoroscopy of Superior Vena Cava using Low Osmolar Contrast, Guidance (ICD-10-PCS; 2021-03-05)
PROC: B548ZZA Ultrasonography of Superior Vena Cava, Guidance (ICD-10-PCS; 2021-03-05)
DX: A41.9 Sepsis, unspecified organism (principal); E43 Unspecified severe protein-calorie malnutrition; R65.21 Severe sepsis with septic shock; N17.0 Acute kidney failure with tubular necrosis; J96.01 Acute respiratory failure with hypoxia; J86.9 Pyothorax without fistula; J15.9 Unspecified bacterial pneumonia; D68.59 Other primary thrombophilia; E87.1 Hypo-osmolality and hyponatremia; E87.2 Acidosis; I31.3 Pericardial effusion (noninflammatory); I82.402 Acute embolism and thrombosis of unspecified deep veins of left lower extremity; D50.9 Iron deficiency anemia, unspecified; E66.9 Obesity, unspecified; E83.51 Hypocalcemia; T36.8X5A Adverse effect of other systemic antibiotics, initial encounter; N14.1 Nephropathy induced by other drugs, medicaments and biological substances; F32.9 Major depressive disorder, single episode, unspecified; F41.1 Generalized anxiety disorder; I11.9 Hypertensive heart disease without heart failure; Z98.51 Tubal ligation status; Z86.718 Personal history of other venous thrombosis and embolism; Z79.01 Long term (current) use of anticoagulants; Z68.33 Body mass index [BMI] 33.0-33.9, adult; Z86.16 Personal history of COVID-19; Y92.89 Other specified places as the place of occurrence of the external cause; Z88.2 Allergy status to sulfonamides
CPT/HCPCS: 36415; 84145; 99291; S0020; 36573; 71045; 71046; 76700; 80048; 80053; 80069; 80202; 81001; 82306; 82436; 82550; 82570; 82728; 83540; 83550; 83605; 83615; 83735; 83935; 83970; 84100; 84133; 84300; 84550; 84703; 85025; 85045; 85379; 85384; 85520; 85610; 85651; 86140; 86769; 86850; 86900; 86923; 87040; 87070; 87075; 87205; 87635; C1729; G0378; J0171; J0696; J1170; J1335; J1644; J1756; J2185; J2250; J2405; J2543; J2704; J2710; J3010; J3370; P9047; U0005; C1751; J0330; J2270; J7030; J7040; J7050; P9016; P9017; U0003